=== PATIENT | male | born 1950 | race Caucasian/White ===

== ENCOUNTER 2016-12-20 06:31 | Day surgery (SDC) | payer MEDICARE ==
[2016-12-14 10:14] LABS: HEMATOCRIT 38.8 % (40.0-51.0); HEMOGLOBIN 13.2 g/dL (13.6-17.8)
[2016-12-14 10:27] LABS: BUN (BLOOD UREA NITROGEN) 11 MG/DL (6-23); CALCIUM, SERUM 8.7 MG/DL (8.5-10.4); CHLORIDE, SERUM 101 MMOL/L (96-112); CO2 (CARBON DIOXIDE) 30 MMOL/L (24-34); CREATININE 0.78 MG/DL (0.70-1.30); GFR AFRICAN AMERICAN 107 ML/MIN (>=60); GFR NON AFRICAN AMERICAN 93 ML/MIN (>=60); GLUCOSE, SERUM 121 MG/DL (60-99); POTASSIUM, SERUM 3.5 MMOL/L (3.5-5.3); SODIUM, SERUM 141 MMOL/L (135-148)
[2016-12-14 10:46] LABS: ASCORBIC ACID (UR NOT ORDER) NEG (NEG); BILIRUBIN, URINE NEGATIVE (NEG); KETONE, URINE NEGATIVE (NEG); LEUKOCYTE ESTERASE(NOT OR NEG (NEG); WBC (NOT ORDERED) (RFLEX) 2 (0-5)
--- NOTE | ~2016-12-20 | OP ---
Record Of Operation [facility] [address] [place]. [address] NAME: NEAL ALBERTS : 46 STATUS : REG [facility]#: [id number] AGE: 66 ADM/REG DATE : 12/20/16 MR#: [id number] REPORT SERV DATE: 12/20/16 DICTATED BY: QIANA HILL DATE: 12/20/16 REPORT STATUS : Draft TRANSCRIBED BY: MODL DATE: 12/20/16 DATE OF PROCEDURE: 12/20/2016 ATTENDING PHYSICIAN: Qiana Hill M.D. TITLE OF OPERATION: 1. Left redo hydrocelectomy. 2. Left spermatocelectomy. 3. Left scrotoplasty. PREOPERATIVE DIAGNOSES: 1. Recurrent left hydrocele. 2. Left spermatocele. 3. Redundant scrotal skin. POSTOPERATIVE DIAGNOSES: 1. Recurrent left hydrocele. 2. Left spermatocele. 3. Redundant scrotal skin. INDICATIONS: Mr. Alberts is a 66-year-old male with a symptomatic left hydrocele and left spermatocele. He also has redundant scrotal skin which is bothersome to him. He is here for the above-mentioned operation. ANESTHESIA: General. COMPLICATIONS: None. IMPLANTS: None. SPECIMEN: 1. Left hydrocele sac. 2. Left spermatocele. 3. Scrotal skin. NARRATIVE: The patient was brought to the operating room, identified by his wristband. General anesthesia was induced, and Ancef was given for preoperative antibiotics. He was placed in the supine position and prepped and draped in a sterile fashion. Prior to making an incision, the subsequent scrotoplasty was performed with an elliptical excision of scrotal skin. An incision was then made on the medial aspect of this planned scrotoplasty incision. The incision was carried down through dartos fiber with electrocautery. The testicle and hydrocele sac were delivered from the wound. Attachments were sharply taken with electrocautery. This was a meticulous process given the prior scar tissue. Eventually the hydrocele sac was isolated. It was entered anteriorly and excised electrocautery along its longitudinal axis. Testicle and cord were found and found to be in normal position. The hydrocele sac was resected circumferentially and removed and sent to Pathology. The Record Of Operation [facility] [address] [place]. [address] NAME: NEAL ALBERTS : 46 STATUS : REG [facility] [place] PAT#: [id number] AGE: 66 ADM/REG DATE : 12/20/16 MR#: [id number] REPORT SERV DATE: 12/20/16 DICTATED BY: QIANA HILL DATE: 12/20/16 REPORT STATUS : Draft TRANSCRIBED BY: KESHIA DATE: 12/20/16 remaining sac was then oversewn with a running 3-0 Vicryl suture. Next the tunica vaginalis overlying the spermatocele was sharply divided with tenotomy scissors. The head of the epididymis was carefully dissected off the testicle, clamped, and ligated and sent to pathology. There were no other spermatoceles available or present. Finally the premarked scrotoplasty incision was completed with electrocautery. The skin was sent to pathology for analysis. The elliptical incision was then closed in a straight line thus cinching up that side of the scrotum. The wound was then irrigated clear. Meticulous hemostasis was obtained with electrocautery. Dartos fibers were closed with a running 3-0 Vicryl suture. The skin was closed with interrupted 3-0 chromic suture. There were no complications. A bacitracin gauze and fluff dressing was placed. The patient was awoken from anesthesia and transferred to the recovery room in stable condition. KARSON/KESHIA Qiana Hill MD / [id number] CC: MD Jewell Nagel DO
[~2016-12-20 06:31] MED LIST: ASAB PO; BACDS PO; CADUET PO; CALCIUM PO; CALTRA600D PO; CO Q-1050 MG PO; COREG6 PO; FISH-EPA1000 MG PO; FORTAMET500 MG PO; GLUCPH PO; HCTZ25B PO; HYDROCHLOROT25 MG PO; KLOR-CON M2020 MEQ PO; LIPITOR20 PO; LORTAB 5 PO; MONOPRIL40 MG PO; MULTIPLE VIT PO; MULTIVIT/MIN PO; NASAREL29 MCG NAS; NIACIN 500 PO; NORCO1 TA1 PO; NORV10 PO; PCET PO; PRAVACHOL40 MG PO; PROSCAR5 PO; RAPAFLO PO; RAPAFLO4 MG PO; RED YEAS1 OR; TESTOSTERONE IM; ULTRAM50 PO; VOLT75 PO; ZYRTEC ALLGY10 MG PO; [UNRECOGNIZED DRUG - OTHER] PO
[2017-07-11] MEDS ORDERED: COREG6 PO (12:32)
[2017-07-11] MEDS ORDERED: LIPITOR20 PO (12:32)
[2017-07-11] MEDS ORDERED: NORV10 PO (12:33)
[2017-07-11] MEDS ORDERED: ASAB PO (12:33)
[2017-07-11] MEDS ORDERED: KLOR-CON M1010 MEQ PO (12:34)
[2017-07-11] MEDS ORDERED: GLUCOPHAGE1000 MG PO (12:34)
[2017-07-11] MEDS ORDERED: MULTIVITAMI1 PO (12:35)
[2017-07-11] MEDS ORDERED: ZYRTEC ALLGY10 MG PO (12:35)
[2017-07-11] MEDS ORDERED: MONOPRIL40 MG PO (12:35)
[2017-07-11] MEDS ORDERED: FISH OIL1200 MG PO (12:36)
[2017-07-11] MEDS ORDERED: MAXIMUM D3 PO (12:36)
[2017-07-11] MEDS ORDERED: PRILOSEC40 MG PO (12:38)
== END 2016-12-20 13:48 | disposition home or self-care (01) ==
LOC: SDC 06:31
PROVIDERS: Urology
PROC: 0VQ50ZZ Repair Scrotum, Open Approach (ICD-10-PCS; 2016-12-20)
PROC: 0VB70ZZ Excision of Left Tunica Vaginalis, Open Approach (ICD-10-PCS; principal; 2016-12-20 07:45)
PROC: 0VBK0ZZ Excision of Left Epididymis, Open Approach (ICD-10-PCS; 2016-12-20 07:45)
DX: N43.3 Hydrocele, unspecified (principal); N43.40 Spermatocele of epididymis, unspecified; L98.7 Excessive and redundant skin and subcutaneous tissue; I10 Essential (primary) hypertension; E78.00 Pure hypercholesterolemia, unspecified; K21.9 Gastro-esophageal reflux disease without esophagitis; Z85.46 Personal history of malignant neoplasm of prostate; E11.9 Type 2 diabetes mellitus without complications; Z88.5 Allergy status to narcotic agent; Z98.41 Cataract extraction status, right eye; Z98.42 Cataract extraction status, left eye; Z96.1 Presence of intraocular lens; Z87.891 Personal history of nicotine dependence; Z90.49 Acquired absence of other specified parts of digestive tract; Z85.819 Personal history of malignant neoplasm of unspecified site of lip, oral cavity, and pharynx; Z98.890 Other specified postprocedural states; Z79.82 Long term (current) use of aspirin; Z79.84 Long term (current) use of oral hypoglycemic drugs; Z79.899 Other long term (current) drug therapy
CPT/HCPCS: 80048; 81001; 82962; 85014; 85018; 88302; 88304; 88305; 93005; A9270-GY; J0690; J2250; J2405; J2710; J3010

== ENCOUNTER → 2017-03-30 02:23 | Emergency (ER) | payer MEDICARE ==
[2017-03-30 01:02] LABS: BASOPHILS 0.5 %; BASOPHILS ABSOLUTE 0.02 10/3/uL (0.0-0.16); EOSINOPHILS 3.7 %; EOSINOPHILS ABSOLUTE 0.16 10/3/uL (0.0-0.53); ER CBC TAT 0 Hrs 00 Mins; HEMATOCRIT 37.5 % (40.0-51.0); HEMOGLOBIN 12.4 g/dL (13.6-17.8); LYMPHOCYTES 39.4 %; MEAN CORPUS HGB CONC 33.1 g/dL (32.0-36.0); MEAN CORPUSCULAR VOLUME 87.8 fL (80-100); MEAN PLATELET VOLUME 9.2 fL (9.2-13.0); MONOCYTES 7.9 %; MONOCYTES ABSOLUTE 0.34 10/3/uL (0.21-1.20); NEUTROPHILS 48.5 %; PLATELET COUNT 189 10/3/uL (150-400); RBC DISTRIBUTION WIDTH 13.4 % (12.0-16.0); RED CELL COUNT 4.27 10/6/uL (4.7-6.1); WHITE BLOOD CELLS 4.3 10/3/uL (4.5-10.5)
[2017-03-30 01:03] LABS: MANUAL DIFF NO %
[2017-03-30 01:10] LABS: PARTIAL THROMBO TIME 26.5 SEC (22.5-37.2); PROTIME (NOT ORD) 13.4 SEC (12.0-14.5)
[2017-03-30 01:24] LABS: CALCIUM, SERUM 9.1 MG/DL (8.5-10.4); CHEST PAIN PROFILE TAT 0 Hrs 00 Mins; CHLORIDE, SERUM 106 MMOL/L (96-112); CO2 (CARBON DIOXIDE) 31 MMOL/L (24-34); CREATININE 1.06 MG/DL (0.70-1.30); GFR AFRICAN AMERICAN 83 ML/MIN (>=60); GFR NON AFRICAN AMERICAN 72 ML/MIN (>=60); GLUCOSE, SERUM 130 MG/DL (60-99); SODIUM, SERUM 142 MMOL/L (135-148); TROPONIN I <0.02 NG/ML (<0.05)
[2017-03-30 01:26] LABS: BUN (BLOOD UREA NITROGEN) 18 MG/DL (6-23); POTASSIUM, SERUM 4.3 MMOL/L (3.5-5.3)
[~2017-03-30 02:23] MED LIST changes: +FISH OIL1200 MG PO; +GLUCOPHAGE1000 MG PO; +KLOR-CON M1010 MEQ PO; +MAXIMUM D3 PO; +MULTIVITAMI1 PO; +PRILOSEC40 MG PO
== END | disposition home or self-care (01) ==
LOC: ER 02:23
PROVIDERS: Emergency Medicine
DX: I10 Essential (primary) hypertension (principal); E11.9 Type 2 diabetes mellitus without complications; Z88.5 Allergy status to narcotic agent; Z79.891 Long term (current) use of opiate analgesic; Z79.84 Long term (current) use of oral hypoglycemic drugs; Z79.82 Long term (current) use of aspirin; Z79.899 Other long term (current) drug therapy
CPT/HCPCS: 80048; 83735; 84484; 85025; 85610; 85730; 93005; 99284